=== PATIENT | male | born 1990 | race Caucasian/White ===

== ENCOUNTER 2020-10-18 00:33 | Emergency (ER) | payer SELFPAY ==
[~2020-10-18] VITALS: Ht 170.2 cm; Wt 79.0 kg
[2020-10-18] MEDS ORDERED: MORPHINE SULFATE 4 MG/ML CPJ (NOT FOR IM USE) IV STA (02:45)
[2020-10-18] MEDS ORDERED: ONDANSETRON HCL 4MG/2ML INJ IV STA (02:45)
[2020-10-18] MEDS ORDERED: SODIUM CHLORIDE 0.9% 1,000 ML IV ONE (02:45)
[2020-10-18] MEDS ORDERED: FAMOTIDINE 20MG/2ML VIAL IV STA (02:45)
[2020-10-18 03:24] LABS: BASOPHILS % 0.5 % (0.0-2.0); EOSINOPHILS % 1.5 % (0.0-5.0); HEMATOCRIT. 38.4 % (42.0-52.0); HEMOGLOBIN. 13.1 g/dL (14.0-18.0); MEAN CORPUSCULAR HEMOGLOBIN 30.9 pg (28.0-32.0); MEAN PLATELET VOLUME 7.8 fl (7.4-10.4); MONOCYTES % 10.2 % (2.0-8.0); NEUTROPHILS % 59.8 % (40.0-76.0); PLATELET 286 x1000/uL (130-400); RED BLOOD CELL COUNT 4.22 mill/uL (4.7-6.1)
[2020-10-18 03:27] LABS: CHLORIDE 108 mEq/L (98-107)
[2020-10-18 04:45] LABS: CLARITY URINE CLEAR (CLEAR); COLOR URINE YELLOW (YELLOW); KETONES URINE NEGATIVE (NEGATIVE); LEUKOCYTE ESTERASE URINE NEGATIVE (NEGATIVE); NITRITE URINE NEGATIVE (NEGATIVE); OCCULT BLOOD URINE 1+ (NEGATIVE); PH URINE 7.5 (4.5-8.0); PROTEIN URINE NEGATIVE (NEGATIVE); SPECIFIC GRAVITY URINE 1.009 (1.005-1.030); UROBILINOGEN URINE 0.2 E.U./dL (0.2-1.0)
[2020-10-18 06:24] VITALS: BP 122/65
== END 2020-10-18 06:30 | disposition home or self-care (01) ==
LOC: ER 00:33
DX: K80.20 Calculus of gallbladder without cholecystitis without obstruction (principal); J45.909 Unspecified asthma, uncomplicated
CPT/HCPCS: 36415; 76705; 80053; 81003; 83690; 85025; 93005; 96374; 96375; 99285; J2270; J2405; J3490; J7030

== ENCOUNTER 2020-10-19 09:46 | Inpatient (IN) | payer SELFPAY ==
[~2020-10-19] VITALS: Ht 170.2 cm; Wt 68.2 kg
[2020-10-19] MEDS ORDERED: ONDANSETRON HCL 4MG/2ML INJ IV STA (10:45)
[2020-10-19] MEDS ORDERED: MORPHINE SULFATE 4 MG/ML CPJ (NOT FOR IM USE) IV STA (10:45)
[2020-10-19] MEDS ORDERED: SODIUM CHLORIDE 0.9% 1,000 ML IV ONE (10:45)
[2020-10-19 11:42] LABS: BASOPHILS % 0.4 % (0.0-2.0); EOSINOPHILS % 1.2 % (0.0-5.0); HEMATOCRIT. 42.2 % (42.0-52.0); HEMOGLOBIN. 14.8 g/dL (14.0-18.0); LYMPHOCYTES % 25.2 % (20.0-50.0); MEAN CORPUSCULAR HEMOGLOBIN 31.5 pg (28.0-32.0); MEAN PLATELET VOLUME 7.6 fl (7.4-10.4); MONOCYTES % 7.7 % (2.0-8.0); NEUTROPHILS % 65.5 % (40.0-76.0); PLATELET 341 x1000/uL (130-400); RED BLOOD CELL COUNT 4.69 mill/uL (4.7-6.1); RED CELL DISTRIBUTION WIDTH 12.9 % (11.6-14.6)
[2020-10-19 11:55] LABS: CHLORIDE 104 mEq/L (98-107)
[2020-10-19 11:59] LABS: ETHANOL BLOOD < 10 mg/dL; PROTHROMBIN TIME 10.3 sec (9.6-11.0)
[2020-10-19] MEDS ORDERED: MORPHINE SULFATE 4 MG/ML CPJ (NOT FOR IM USE) IV ONE (12:00)
[2020-10-19] MEDS ORDERED: IOHEXOL-300 100 ML BOTTLE ONE (13:38)
[2020-10-19] MEDS ORDERED: ONDANSETRON HCL 4MG/2ML INJ IV ONE (15:45)
[2020-10-19] MEDS ORDERED: CLONIDINE 0.1MG TABLET PO PRN (18:30)
[2020-10-19] MEDS ORDERED: IPRATROPIUM/ALBUTEROL 0.5-3(2.5)MG/3ML NEB NEB PRN (18:30)
[2020-10-19] MEDS ORDERED: MAGNESIUM/ALUMINUM HYDROXIDE/SIMETHICONE 30ML UDC PO PRN (18:30)
[2020-10-19] MEDS ORDERED: ACETAMINOPHEN 325MG TABLET PO PRN ×2 (18:30)
[2020-10-19] MEDS ORDERED: DOCUSATE SODIUM 100MG CAPSULE PO PRN (18:30)
[2020-10-19] MEDS ORDERED: ZOLPIDEM TARTRATE 5MG TABLET PO PRN (18:30)
[2020-10-19] MEDS ORDERED: GUAIFENESIN 200MG/10ML SUGAR FREE UDC PO PRN (18:30)
[2020-10-19] MEDS ORDERED: NITROGLYCERIN 0.4MG TABLET SL SL PRN (18:30)
[2020-10-19 21:00] LABS: FOLIC ACID (FOLATE) SERUM 9.3 ng/mL (>5.38)
[2020-10-19] MEDS: KETOROLAC 15MG/ML VIAL IV PRN (21:49)
[2020-10-19] MEDS: SUCRALFATE 1 G/10 ML UDC PO SCH (21:57)
[2020-10-19] MEDS: FAMOTIDINE 20MG TABLET PO SCH (21:57)
[2020-10-19 22:23] VITALS: BP 116/79
[2020-10-20] VITALS: BP 119/69
[2020-10-20 00:30] LABS: CREATINE KINASE 81 IU/L (39-308)
[2020-10-20 01:32] LABS: CREATINE KINASE MB FRACTION < 1.0 ng/mL (0.5-3.6)
[2020-10-20 04:00] VITALS: BP 115/55
[2020-10-20] MEDS: ONDANSETRON HCL 4MG/2ML INJ IV PRN ×2 (04:34→11:02)
[2020-10-20] MEDS: KETOROLAC 15MG/ML VIAL IV PRN ×2 (04:40→11:03)
[2020-10-20 06:32] LABS: BASOPHILS % 0.3 % (0.0-2.0); EOSINOPHILS % 1.1 % (0.0-5.0); HEMOGLOBIN. 13.9 g/dL (14.0-18.0); LYMPHOCYTES % 32.6 % (20.0-50.0); MEAN CORPUSCULAR VOLUME 89.3 fL (80.0-94.0); MEAN PLATELET VOLUME 8.1 fl (7.4-10.4); MONOCYTES % 9.5 % (2.0-8.0); NEUTROPHILS % 56.5 % (40.0-76.0); PLATELET 303 x1000/uL (130-400); RED BLOOD CELL COUNT 4.48 mill/uL (4.7-6.1); RED CELL DISTRIBUTION WIDTH 13.1 % (11.6-14.6)
[2020-10-20 06:50] LABS: CHLORIDE 106 mEq/L (98-107)
[2020-10-20 06:56] LABS: PHOSPHORUS 3.7 mg/dL (2.5-4.9)
[2020-10-20 06:58] LABS: CREATINE KINASE 106 IU/L (39-308)
[2020-10-20 07:01] LABS: CREATINE KINASE MB FRACTION < 1.0 ng/mL (0.5-3.6)
[2020-10-20] MEDS: SUCRALFATE 1 G/10 ML UDC PO SCH ×2 (07:01→12:53)
[2020-10-20 08:00] VITALS: BP 107/87
[2020-10-20] MEDS: FAMOTIDINE 20MG TABLET PO SCH (08:12)
[2020-10-20 12:00] VITALS: BP 107/87
[2020-10-20 12:01] VITALS: BP 120/51
[2020-10-20 13:06] LABS: CLARITY URINE CLEAR (CLEAR); COLOR URINE YELLOW (YELLOW); KETONES URINE NEGATIVE (NEGATIVE); LEUKOCYTE ESTERASE URINE NEGATIVE (NEGATIVE); NITRITE URINE NEGATIVE (NEGATIVE); OCCULT BLOOD URINE TRACE (NEGATIVE); PH URINE 6.5 (4.5-8.0); PROTEIN URINE NEGATIVE (NEGATIVE); SPECIFIC GRAVITY URINE 1.002 (1.005-1.030); UROBILINOGEN URINE 0.2 E.U./dL (0.2-1.0)
[2020-10-20 13:22] LABS: *COCAINE SCREEN URINE NEGATIVE (NEGATIVE); METHADONE URINE SCREEN NEGATIVE (NEGATIVE); OPIATES URINE SCREEN NEGATIVE (NEGATIVE)
[2020-10-20 13:23] LABS: *AMPHETAMINES SCREEN URINE NEGATIVE (NEGATIVE); *BARBITURATES SCREEN URINE NEGATIVE (NEGATIVE); *BENZODIAZEPINES SCREEN URINE NEGATIVE (NEGATIVE); CANNABINOID URINE SCREEN NEGATIVE (NEGATIVE); PHENCYCLIDINE URINE SCREEN NEGATIVE (NEGATIVE)
== END 2020-10-20 14:00 | disposition home or self-care (01) | DRG 251 ==
LOC: ER 09:46 → MICUSO 12:32 → 8WST 19:33
PROVIDERS: ADMIT Internal Medicine; ATTEND Internal Medicine
DX: R10.11 Right upper quadrant pain (principal); F12.10 Cannabis abuse, uncomplicated; J45.909 Unspecified asthma, uncomplicated; Z76.5 Malingerer [conscious simulation]; Z82.49 Family history of ischemic heart disease and other diseases of the circulatory system
CPT/HCPCS: 36415; 74177; 80053; 80061; 80305; 80320; 81003; 82550; 82553; 82607; 82746; 83036; 83540; 83550; 83605; 83735; 84100; 84484; 85025; 86850; 86900; 99285; J1885; J2270; J2405; J7030; J7040; Q9967; G0480

== ENCOUNTER 2021-08-19 06:24 | Emergency (ER) | payer OTHER, MEDICAID ==
[~2021-08-19] VITALS: Ht 167.6 cm; Wt 66.3 kg
[2021-08-19 06:29] VITALS: BP 130/84
[2021-08-19] MEDS ORDERED: SULF1TAB48 PO (06:47)
[2021-08-19] MEDS ORDERED: CEPH500T PO (06:47)
== END 2021-08-19 06:55 | disposition home or self-care (01) ==
LOC: ER 06:24
DX: L03.011 Cellulitis of right finger (principal); J45.909 Unspecified asthma, uncomplicated; Z87.442 Personal history of urinary calculi
CPT/HCPCS: 99281

== ENCOUNTER 2021-11-12 21:33 | Emergency (ER) | payer OTHER, MEDICAID ==
[~2021-11-12] VITALS: Ht 165.1 cm; Wt 77.0 kg
[~2021-11-12 21:33] MED LIST: CEPH500T PO; SULF1TAB48 PO
[2021-11-12 21:35] VITALS: BP 133/81
[2021-11-12] MEDS ORDERED: KETOROLAC 60MG/2ML VIAL IM STA (23:34)
[2021-11-13 00:15] LABS: HEMATOCRIT. 37.1 % (42.0-52.0); HEMOGLOBIN. 12.7 g/dL (14.0-18.0); MEAN CORPUSCULAR HEMOGLOBIN 31.6 pg (28.0-32.0); MEAN CORPUSCULAR VOLUME 92.1 fL (80.0-94.0); PLATELET 226 x1000/uL (130-400); RED BLOOD CELL COUNT 4.03 mill/uL (4.7-6.1); RED CELL DISTRIBUTION WIDTH 12.7 % (11.6-14.6)
[2021-11-13 00:18] LABS: CHLORIDE 106 mEq/L (98-107)
[2021-11-13] MEDS ORDERED: ALBU18HF2 IH (01:55)
[2021-11-13] MEDS ORDERED: NAPR-681 PO (01:55)
[2021-11-13] MEDS ORDERED: P50 PO (01:55)
[2021-11-13 05:45] LABS: PLATELET ESTIMATE NORMAL
== END 2021-11-13 02:24 | disposition home or self-care (01) ==
LOC: ER 21:33
DX: U07.1 COVID-19 (principal); J40 Bronchitis, not specified as acute or chronic; R07.89 Other chest pain
CPT/HCPCS: 36415; 71045; 80053; 83880; 84484; 85025; 87426; 93005; 96372; 99285; C9803; J1885